=== PATIENT | male | born 1985 | race Caucasian/White ===

== ENCOUNTER 2016-07-15 18:30 | Inpatient (IN) | payer MEDICAID, OTHER ==
[~2016-07-15] VITALS: Ht 160 cm; Wt 89.8 kg
[~2016-07-15 18:30] MED LIST: COGENTIN PO; OLAN10TA22 PO; VIS25 PO
[2016-07-15] MEDS ORDERED: Magnesium Hydroxide 10 mL Oral Concentration PO PRN (21:25)
[2016-07-15] MEDS ORDERED: Alum-Mag Hydrox-Simeth 30 mL Suspension PO PRN (21:25)
[2016-07-15] MEDS ORDERED: LORazepam 1 mg Tablet PO PRN (21:25)
[2016-07-15] MEDS ORDERED: Benzocaine-Menthol Lozenge 2/Pkg PO PRN (21:25)
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
[2016-07-16] MEDS ORDERED: HYDR50TA76 (09:16)
[2016-07-16] MEDS ORDERED: MIRT15TA6 (09:16)
[2016-07-16] MEDS ORDERED: LIT300 (09:16)
[2016-07-16] MEDS ORDERED: LURA80TA3 (09:16)
[2016-07-16] MEDS ORDERED: GABA-502 (09:16)
[2016-07-16 10:35] VITALS: BP 126/84; PULSE 84; RESP 16
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
--- NOTE | 2016-07-16 17:24 | NUR ---
Nursing Dayshift: S: "Playing SeroMatch helps my anxiety and depression." O: Patient playing [employer]) video game in the group activity room when making above statement. Has been up for meals and group activities. Good appetite. Interactive on approach. wears wrist brace most of the time taking it off for meals. No c/o pain. Denies harmful thoughts and hallucinations. A: Flat affect. Med compliant. P: CPOC. Monitor mood and behavior.
--- NOTE | 2016-07-16 18:08 | NUR ---
[facility] Day Shift Pt maintained behavioral control throughout the shift. Pt affect appears mostly flat. Pt spends most of the shift resting in his room, sitting quietly in the dining room, and participating in unit activities. Pt is appropriate with staff and peers when active on the unit, but is not social. Pt spends a considerable amount of time using the unit [employer] console to play video games, which pt claims helps him deal with anxiety and depression. Pt attended all meals and ate approx 100% of all meals.
[2016-07-16] MEDS ORDERED: risperiDONE 1 mg Tablet ONE (18:23)
[2016-07-16] MEDS: risperiDONE 2 mg Tablet PO SCH ×2 (18:33→20:16)
--- NOTE | 2016-07-16 18:33 | NUR ---
Nurses PRN Patient received Risperdal 1mg of HS dose of 2mg for c/o increasing troubled thoughts,anxiety and Cogentin 1mg for restlessness,will assess response. Addendum: 07/16/16 at 2105 by PA VENEGAS RN Nurses Note Cheryl Patient maintained control this shift. He c/o inability to sleep and became irritated and anxious. He received Ambien 5mg and Ativan 1mg at 2100 for sleep,director of technology to assess response.
--- NOTE | 2016-07-16 18:50 | NUR ---
Medical Social Worker/Counselor: S: "I really want to get my life under control and do better things with it." O: Patient slept 6.75+ hours last night as per staff. He reports thoughts of suicide with a plan of an overdose. He denies H/I. He denies auditory and visual hallucinations. He did not rate depression and anxiety. A: Patient is cooperative, guarded, hypervigilant, fair insight, fair judgment. P: Follow care plan, coordinate out-patient providers.
[2016-07-16] MEDS: LORazepam 1 mg Tablet PO PRN (20:58)
--- NOTE | 2016-07-17 05:11 | NUR ---
Nursing Note 7pm to 7am Pt visible on unit at start of shift playing WE with peers, mood neutral, affect congruent. No complaints voiced or observed. Pt medication compliant. Went to bed after evening movie and slept through the night. Monitoring ongoing
[2016-07-17] MEDS: risperiDONE 2 mg Tablet PO SCH ×2 (08:00→20:47)
[2016-07-17 09:00] VITALS: BP 129/88; PULSE 85; RESP 16
--- NOTE | 2016-07-17 16:59 | NUR ---
Nursing Dayshift: S: "I am having some suicidal thoughts. Nothing I can do in here though." O: Patient acknowledging SI. Denies HI, anxiety, depression, and hallucinations. Slept through breakfast. Ate well at lunch and currently states he is very hungry for dinner which just arrived. Has been watching TV with male peer recently. Has napped this afternoon. No complaints verbalized. A: Med compliant. Flat affect. P: CPOC. Monitor mood and behavior.
--- NOTE | 2016-07-17 17:35 | PROG NOTE ---
[address] [address] PROGRESS NOTE PATIENT: BIANCA THOMAS : 1985 MR#: [id number] ADMIT: 07/15/2016 JOB ID: [id number] DATE: 07/17/2016 CHIEF COMPLAINT: "I am feeling okay." This per patient report. HISTORY OF PRESENT ILLNESS: As stated above, the patient identified that he does feel that the medication difference between his dose of Latuda and Risperdal seems to be working. He indicated that he has been sleeping much of the day. He indicates that he does feel somewhat sedated, but states that it is nice to know that his mood is much more stable. He indicated that he has not had any further thoughts of suicide, thoughts of self-harm over the past 24 hours. MENTAL STATUS EXAMINATION: He was bright, cooperative, interactive. He maintained good eye contact. He reportedly has been sleeping much of the day. He reportedly states that he does want to effectively work with transferring his services to [facility] versus [facility]. His speech is of normal tone, frequency, and volume. His mood is neutral. His affect was congruent. His thought process shows no evidence of random flight of ideas, loose or disconnected thinking. Thought content: He denied any evidence of current suicidal or homicidal ideation. No evidence of active hallucinations or delusions. He was alert and oriented to time, place, and situation. Attention and concentration intact. Memory intact in the short-term, long-term, and recent. Insight and judgement are fair. PHYSICAL EXAMINATION: Vital signs are current: Temperature 35.9, pulse 85, respirations 16, blood pressure 129/88. MEDICATIONS: Review includes Remeron 15 mg q.h.s., gabapentin 600 mg b.i.d., Risperdal 2 mg b.i.d., Cogentin p.r.n. 1 mg b.i.d., and lithium carbonate 600 mg b.i.d. ASSESSMENT: [place] I: 1. Bipolar disorder not otherwise specified by history. 2. Post-traumatic stress disorder, chronic. 3. Major depressive disorder, recurrent type, nonpsychotic. [place] II: 1. Borderline personality disorder, probable. 2. Antisocial personality disorder, probable. [place] III: 1. History of recent fracture of right hand. 2. History of eczema and acne. [place] IV: Stressors are noted for disturbance of coping, chronic history of substance abuse. [place] V: Global Assessment of Functioning of current 25. PLAN: 1. Recommendations for continuation of medications as noted with introduction of In[place]ichael [place] on Tuesday. 2. Continuation of pursuit of extension of LR 90 to be applied per the courts on Tuesday of next week. 3. Continuation of support as noted.
--- NOTE | 2016-07-17 17:50 | NUR ---
Observations 2709-3740 Pt was asleep in room upon start of shift. He did not attend Community Meeting or participate in group activities. He spent much of his day sleeping in bed. He did not attend breakfast, but attended lunch and dinner eating 100%. Pt was friendly with staff and peers, but not overly social. He played wii in the evening. He was observed every 15 minutes of shift as directed.
--- NOTE | 2016-07-18 05:13 | NUR ---
nursing, nights, 11-7 s/o- has appeared to sleep after 2014 during q 15 minute assessments. a- no apparent distress. p- monitor behavior/emotional state, quality, times and amount of sleep, use and effect of medication. eunice
--- NOTE | 2016-07-18 05:19 | NUR ---
Nursing Note 7pm to 7am Pt seen in common area watching tv with peers. Requested night time meds as soon as available. Pt received Ambien for sleep, went to bed at 2014 and slept through the night without incident. Monitored with q 15 minute checks for safety, location and accountability.
[2016-07-18] MEDS: risperiDONE 2 mg Tablet PO SCH ×2 (08:00→20:33)
[2016-07-18 09:00] VITALS: BP 121/82; PULSE 85; RESP 16
[2016-07-18] MEDS ORDERED: Paliperidone Palmitate 234 mg/1.5 mL Inj (NC) IM SCH (12:00)
--- NOTE | 2016-07-18 17:04 | NUR ---
Nursing Dayshift: S: "I'd rather not have it in the arm." O: Patient received first dose of Invega Sustenna IM this afternoon in the right buttock per choice. Has been in his bed much of the day. Up for meals with a good appetite. Anxiety "low". Depression "high". Denies harmful thoughts and hallucinations. A: Flat. Forlorn. Disinterested. P: CPOC. Monitor mood and behavior.
--- NOTE | 2016-07-18 18:19 | PROG NOTE ---
[address] [address] PROGRESS NOTE PATIENT: BIANCA THOMAS : 1985 MR#: [id number] ADMIT: 07/15/2016 JOB ID: [id number] DATE: 07/18/2016 CHIEF COMPLAINT: "I am feeling sleepy, when do you think I can get my shot." This per patient report. HISTORY OF PRESENT ILLNESS: As stated above, the patient did identify that he is currently struggling with significant sedation as a side effect with introductions of Risperdal. He indicates, however, that it has been nice due to the fact he has been able to express that his thoughts are much calmer. He reportedly has isolated and withdrawn from the group activities at times but has participated in various interactions with staff. He evidently is playing the [employer] with several of the patient's at times. OBJECTIVE: On mental status exam, he was cooperative, polite. He maintains good eye contact throughout. He is quite sedate on approach. His speech is soft and monotonic. His mood is depressed. His affect is blunted. His thought process shows no evidence of racing thoughts, flight of ideas, loose or disconnected thinking. Thought content: He denied any evidence of current suicidal ideation, intent, or plan. He did admit to struggles last evening with suicidal thoughts and feelings of hopelessness. He denied any active hallucinations or delusions. He was alert, oriented to place and time. His attention and concentration intact. Memory intact in the short term, terminal gauger, recent. Insight and judgment are fair. PHYSICAL EXAMINATION: Vital signs, current: Temperature is 35.9, pulse 85, respirations 16, BP 129/88. MEDICATION REVIEW: Includes: 1. Remeron 15 mg q.h.s. 2. Ativan 1 mg q.4 h. p.r.n. for anxiety, agitation. 3. Ambien 5 mg at h.s. p.r.n. 4. Gabapentin 600 mg b.i.d. 5. Risperdal 2 mg b.i.d. 6. Cogentin 1 mg b.i.d. p.r.n. 7. Doxycycline 100 mg daily. 8. Ponce carbonate 600 mg b.i.d. ASSESSMENT: [place] I. 1. Bipolar disorder, not otherwise specified, by history. 2. Posttraumatic stress disorder, chronic. 3. Major depressive disorder, recurrent type, nonpsychotic. [place] II. 1. Borderline personality disorder. 2. Antisocial personality disorder. [place] III. 1. History of recent fracture of his right hand. 2. History of eczema and acne. [place] IV. Stressors are noted for disturbance of coping, chronic history of substance abuse. [place] V. Global Assessment of Functioning current 30. PLAN: 1. Recommendations for injections of Invega Sustenna 234 mg to be given today. 2. Ponce level to be drawn tomorrow morning. 3. Continuation of all other medications noted. MTDD
--- NOTE | 2016-07-18 18:21 | NUR ---
Observations [id number] Pt was asleep upon start of shift. He continues to sleep much of the day, only getting up for meals. Pt presents with a large appetite, eating 100%. He is not overly social with others and isolates much of the time. Pt asked about medication, very focused on getting a shot the doctor told him he would be getting. Pt did get shot today. He was observed every 15 minutes of shift as directed.
--- NOTE | 2016-07-19 04:57 | NUR ---
Nursing Noc 7p-7a Pt had a noneventful evening. He came out briefly for snacks but otherwise did not participate in unit activities. He presents with a flat blunt affect. Took scheduled medication along with Ambien 5mg po prn for sleep with good effect. He retired to bed right after snack time and appeared asleep by 2129. Pt has remained asleep through the night with no noted distress or awakening per protocol checks. Total sleep over 7.5 hours.
[2016-07-19] MEDS: risperiDONE 2 mg Tablet PO SCH ×2 (08:17→20:39)
[2016-07-19 09:00] VITALS: BP 133/78; PULSE 65; RESP 17
--- NOTE | 2016-07-19 17:13 | NUR ---
Observations 0900 to 1730 Pt affect and mood was anxious, labile and isolative. Pt speech and eye contact was ok. Pt attended group but left early and stated that he was too tired to stay in group. Pt attended community meeting and set a daily goal. Pt was social with staff and peers when approached. Pt played Timeful in the group room. Pt attended meals in D.R. and ate 100% of breakfast and 100% of lunch. Pt maintained behavior throughout the shift. Pt was in his room resting in the afternoon. Pt was polite, pleasant and cooperative. Pt is currently watching TV with peers. Pt was observed every 15 minutes throughout the shift as ordered. Addendum: 07/19/16 at 1732 by ISIDRO MARTIN [facility] Pt took a shower and attended to ADL's.
--- NOTE | 2016-07-19 17:50 | NUR ---
Cat Hooker/Counselor: S: "I'm really sleepy today, I need to get that shot soon." O: Patient slept 8+ hours last night as per staff. He reports that he's having thoughts of suicide, but contracts for safety in the hospital. He denies H/I. He denies auditory and visual hallucinations. He did not rate depression and anxiety. A: Patient is cooperative, blunted affect, depressed, hopeless, fair insight, fair judgment. P: Follow care plan, coordinate out-patient providers.
--- NOTE | 2016-07-19 18:02 | NUR ---
Nursing Dayshift: S: "I don't want any meds until I talk to the doctor about changing some of them. This is why I am so tired all the time. Too much pills in the morning!" O: Patient did take his AM meds after lunch after some of the medications had been adjusted. Has been playing WII this afternoon by himself. Not much interaction with peers. Good appetite at meals. Of note has been up all shift. Rates anxiety and depression "in the middle". Denies harmful thoughts and hallucinations. A: Flat. Disgruntled at times. P: CPOC. Monitor mood and behavior.
--- NOTE | 2016-07-19 20:41 | PROG NOTE ---
[address] [address] PROGRESS NOTE PATIENT: BIANCA THOMAS : 1985 MR#: [id number] ADMIT: 07/15/2016 JOB ID: [id number] DATE: CHIEF COMPLAINT: "I am feeling so sleepy during the daytime. Can we decrease the medicine?" This is per patient report. HISTORY OF PRESENT ILLNESS: As stated above, the patient did identify that he continues to have significant struggles with daytime sedation and lethargy. I have discussed possibility of tapering his Risperdal back to 1 mg b.i.d., based on his recent introductions of Invega Sustenna and he is open to such. I have informed him that he will receive a followup injection in the next four days for his Invega. He identified that he continues to be optimistic that [facility] will transfer his case to [facility]. 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 OBJECTIVE: On mental status exam, he was cooperative, polite. He maintained good eye contact. He appears fairly anxious on interaction at times. His speech is of normal tone, frequency, and volume. His mood is anxious. His affect is elevated to some degree. His thought process shows no evidence of racing thoughts, flight of ideas, loose or disconnected thinking. His thought content: He denies any evidence of current suicidal or homicidal ideation. There is a continuation of mild paranoia, which is characteristic of hypervigilance. He denies any active hallucinations, delusions. He was alert, oriented to time and place. His attention and concentration fleeting. Insight and judgment are fair. PHYSICAL EXAMINATION: Vital signs, current: Temperature is 35.8, pulse 65, respirations 17. LABORATORY DATA COLLECTED: Included a lithium level, which was at 0.5 this morning. I have discussed further titration of his lithium to 900 mg b.i.d. for more effective management. ASSESSMENT: [place] I. 1. Major depressive disorder, recurrent type, nonpsychotic. 2. Bipolar disorder, not otherwise specified by history. 3. Posttraumatic stress disorder, chronic. [place] II. 1. Borderline personality disorder. 2. Antisocial personality disorder. [place] III. History of fracture of his hand, eczema, and acne. [place] IV. Stressors are noted for chronic history of substance abuse, disturbance in coping. [place] V. Global Assessment of Functioning current 35. PLAN: 1. Recommendations for titration of lithium to 900 mg b.i.d. 2. Decrease Risperdal to 1 mg b.i.d. 3. Continuation of all medications as noted. 4. Recommendations for petition for extension of LR 90 to be filed through [facility] or possible applications to be completed on Tuesday of this week through [facility].
--- NOTE | 2016-07-20 01:09 | NUR ---
Observations 1900 to 0700 Pt watched TV for most of the shift. Pt isolated to n5earss mostly. Pt was polite to staff when approached. pt did attend wrap up group. pt had a hard time falling asleep last night. pt first appeared asleep at 23:45 and was observed every 15 minutes through the night as directed.
--- NOTE | 2016-07-20 06:17 | NUR ---
Nursing Noc 7p-7a Pt visible out on the unit interacting with both peers and staff. He participated in evening group/snack/movie. He c/o right hand pain stating "I think it is broken". Pt's hand looks red and swollen. Pt plans to see doctor and request an assessment and possible x-ray of his right hand. Doctor notified of pt's request for pain medication. One time dose of Flexeril 10mg po ordered and given. Pt did not believe this would help but did accept medication. Ice pack provided pt. Pt retired to bed and has remained asleep since 2344 with no noted distress or awakening per protocol checks. Total sleep over 6.5 hours.
[2016-07-20] MEDS: risperiDONE 2 mg Tablet PO SCH ×2 (08:27→20:47)
[2016-07-20 10:18] VITALS: BP 132/74; PULSE 55; RESP 16
--- NOTE | 2016-07-20 13:18 | PROG NOTE ---
[address] [address] PROGRESS NOTE PATIENT: BIANCA THOMAS : 1985 MR#: [id number] ADMIT: 07/15/2016 JOB ID: [id number] DATE: 07/20/2016 CHIEF COMPLAINT: "My hand is still hurting." This is per patient report. HISTORY OF PRESENT ILLNESS: As stated above, the patient identified continuation of persistent pain in his right metacarpal region. He reportedly had been seen through the [facility] prior to his transport and is currently wearing a brace. I have agreed to order an x-ray for followup review and due to his significant history of allergies to ACETAMINOPHEN and also his concomitant usage of lithium, I have informed him that I am reluctant to engage in treatment with medication for pain management until further review of x-rays are noted. OBJECTIVE: On mental status exam, he was bright, cooperative, interactive. He maintained good eye contact. He indicated that sedation is much less with decreased doses of Risperdal down to 1 mg b.i.d. His speech is of normal tone, frequency and volume. His mood is neutral. His affect is guarded. His thought process shows no evidence of racing thoughts, flight of ideas, loose or disconnected thinking. Thought content, he denied any evidence of current suicidal or homicidal ideation. He denied any active hallucinations or delusions. He continues to be mildly paranoid and hypervigilant. He was alert, oriented to time and place. Attention and concentration are intact. Memory intact in the short term, retirement, recent. Insight and judgment are fair. PHYSICAL EXAMINATION: Vital signs are current. Temperature is 35.5, pulse 55, respirations 16, BP 132/74. MEDICATION REVIEW: Includes: 1. Gabapentin 600 mg b.i.d. 2. [place] 900 mg b.i.d. 3. Risperdal 1 mg b.i.d. 4. Remeron 15 mg q.h.s. 5. Ativan 1 mg q.4 h. p.r.n. 6. Ambien 5 mg at h.s. p.r.n. 7. Cogentin 1 mg b.i.d. p.r.n. 8. Doxycycline 100 mg daily. ASSESSMENT: AXIS I 1. Major depressive disorder, recurrent type, nonpsychotic. 2. Bipolar disorder, not otherwise specified by history. 3. Posttraumatic stress disorder, chronic. AXIS II 1. Borderline personality disorder. 2. Antisocial personality disorder. AXIS III 1. History of fracture of hand. 2. Eczema. 3. Acne. AXIS IV Stressors are noted for substance abuse, disturbance of coping. AXIS V Global Assessment of Functioning current 35. PLAN: 1. Recommendation is for continuation of all medications noted. 2. X-ray of the hand to be re-completed for further review. 3. Recommendation is for applications for extension of LR 90, be filed on , with pursuit of discharge to the [facility] at patient request. Coordination with court services will follow.
--- NOTE | 2016-07-20 13:30 | NUR ---
Nursing Note [id number] Behavior S/O: Pt out of room for meals only. Good appetite. Pulse is low at 55 today. X-ray of right wrist done d/t increasing pain. Pt pleasant & cooperative upon approach. Conversation tracking clear & organized with normal rate & rhythm. No interactions seen with peers. Pt d/n attend groups today. A: Pt isolative & feels extremely uncomfortable talking with staff & peers. Pt con't to be paranoid. P: Provide supportive environment. Monitor medications & effects.
--- NOTE | 2016-07-20 14:02 | DRSVH ---
PROCEDURE: X-RAY RIGHT HAND, MINIMUM THREE VIEWS ([id number]) INDICATIONS: fracture TECHNIQUE: 3 views of the hand(s) acquired. COMPARISON: [facility], CR, FOREARM 2VW (RT), 11/10/2012, 20:49. FINDINGS: Bones: Surgical fixation screw is present traversing fracture involving the distal pole of the scapho id or fracture lucency is still visible. There is no evidence of osteonecrosis involving the proxima l pole. No additional fracture seen. Soft tissues: No suspicious soft tissue calcifications. IMPRESSION: Postsurgical changes involving the scaphoid related to distal pole scaphoid fracture and fracture lucency is still visible. No radiographic evidence for osteonecrosis involving the proximal pole. Dictated by: Vince ROSS Interpreted: Dorothy Villarreal MD on 07/20/2016 at 14:00 Transcribed by: MACHELLE on 07/20/2016 at 14:02 Approved by: Dorothy Villarreal M.D. on 07/20/2016 at 16:56
--- NOTE | 2016-07-20 15:48 | NUR ---
Scenic Designer/Counselor: S: "My hand is still hurting." O: Patient slept 6+ hours last night as per staff. He denies S/I and H/I. He denies auditory and visual hallucinations. A: Patient is cooperative, guarded, mildly paranoid, hypervigilant, fair insight, fair judgment. P: Follow care plan, coordinate out-patient providers.
[2016-07-20] MEDS: LORazepam 1 mg Tablet PO PRN (18:22)
--- NOTE | 2016-07-20 18:46 | NUR ---
Obs Dayshift Pt declined morning groups, did get up and participated in afternoon/evening groups. Pt is polite, engaged, played cards w/ a peer during free times. Pt is calm, polite, good eye contact. Ok ADL's, Good meals
--- NOTE | 2016-07-20 20:59 | NUR ---
Nurses Note Evening "I really need something for pain, the pain is running up to my elbow." Patient received Ibuprofen 600mg at 1915 for 01/06. He received an Ativan 1 mg at 1821 for anxiety with calming effect. Patient stated moderate pain relief with Ibuprofen. He has been social.polite with clear organized goal directed thoughts. His affect remains constricted but his mood is much improved from this weekend. Will encourage continued group participation,improved insight,coping skills and medication compliance. Patient has a [place] level scheduled in the am. Addendum: 07/20/16 at 1112 by PA VENEGAS RN Amended: Links added.
--- NOTE | 2016-07-21 00:59 | NUR ---
Observations 1900 to 0700 Pt watched TV for most of the shift. Pt isolated to himself mostly. Pt was polite to staff when approached. pt did attend wrap up group. pt first appeared asleep at 21:45 and was observed every 15 minutes through the night as directed.
--- NOTE | 2016-07-21 05:00 | NUR ---
Sleep 11p-7a Adequate sleep through the night with no noted distress or awakening per protocol checks. Total sleep 8+ hours.
[2016-07-21] MEDS: risperiDONE 2 mg Tablet PO SCH ×2 (08:46→20:27)
[2016-07-21 12:14] VITALS: BP 130/72; PULSE 52; RESP 15
--- NOTE | 2016-07-21 12:35 | PROG NOTE ---
[address] [address] PROGRESS NOTE PATIENT: BIANCA THOMAS : 1985 MR#: [id number] ADMIT: 07/15/2016 JOB ID: [id number] DATE: 07/21/2016 CHIEF COMPLAINT: "My hand does feel better. Thanks for giving the ibuprofen." HISTORY OF PRESENT ILLNESS: As stated above, the patient did indicate that last evening after receiving doses of ibuprofen that the pain in his hand has significantly improved. His lithium level came back this morning at 0.7 and I have informed him that, based on usage of ibuprofen combined with his lithium, we will closely monitor interactions. He indicated that he is feeling less sleepy during the daytime and appreciated the decreased dose of Risperdal. He reports that he continues to experience auditory hallucinations to some degree but he is able to distract himself in general. He did receive his 1st dose of Invega Sustenna on the ; next scheduled doses will be on the . OBJECTIVE: On mental status exam, he was sleeping during the course of conversation. He was able to arouse and actually spoke favorably of his current status. He was agreeable to go through a continuance hearing on Tuesday with a petition to reapply for LR 90 and extension. He indicated that he knows that he needs a director of casework and assistance for housing and medication management and states that his goal is to transition to [facility]. On mental status exam, as noted above, the patient is mildly sedate. He makes intermittent eye contact. His speech is of normal tone, frequency, and volume. His mood is neutral. Affect was blunted. His thought process shows some continuation of loose and disorganized thinking. He is fairly distracted. His thought content, he denied any evidence of current suicidal or homicidal ideation. He remains mildly paranoid. He did admit to hearing voices last evening and appears to be somewhat distracted on interaction. He was alert, oriented to time and place. His attention and concentration intact. Memory intact in the short term, chcf, recent. Insight and judgment are fair. On physical examination, vital signs of current: Temperature is 35.5, pulse 55, respirations 16, BP 132/74. MEDICATION REVIEW: Includes Neurontin 600 mg b.i.d., ibuprofen 600 mg q. 6 hours p.r.n. for pain, lithium carbonate 900 mg b.i.d., Risperdal 1 mg b.i.d., Invega Sustenna 234 mg on the with next scheduled on the , Remeron 15 mg q.h.s., doxycycline 100 mg daily. ASSESSMENT: [place] I: 1. Bipolar disorder, not otherwise specified, by history. 2. Major depressive disorder, recurrent type, nonpsychotic. 3. Post-traumatic stress disorder, chronic. [place] II: 1. Borderline personality disorder. 2. Antisocial personality disorder by history. [place] III: None. [place] IV: Stressors are noted for chronic disturbance of coping, chronic mental health issues. [place] V: Global Assessment of Functioning of current 30. PLAN: 1. Recommendations for applications for extension of LR 90 to be filed tomorrow with court appearance on Tuesday. 2. Recommendations for continuation of all medications noted.
--- NOTE | 2016-07-21 14:15 | NUR ---
Nursing Note [id number] Behavior S/O: Pt has good appetite. Out of rooms for meals only. Pt has been in bed resting/asleep except for meals. Pt took am medications without problems. He states he slept well last night. Pt has had no interactions with peers & superficial interactions with staff. Pt refused to attend groups today. Conversation tracking clear & organized with normal rate & rhythm. A: Pt isolative in room. P: Provide supportive environment. Encourage pt to attend groups. Monitor medications & effects.
--- NOTE | 2016-07-21 21:33 | NUR ---
Nurses PRN Patient requested and received Ambien 5mg at 2026 and a repeat at 2132 for sleep,overnight babysitter to assess response.
--- NOTE | 2016-07-21 22:14 | NUR ---
Nurses Note Evening Patient has been out on the unit,appropriately social with peers.Thoughts are clear,organized and reality based. His mood has been depressed with waves of anxiety and worry. Patient has been talking about going to a technical school to acquire a skill. He worries about his right wrist healing well,his ability to do work when healed and his discharge disposition. Will maintain q 15min. checks for safety and support. Addendum: 07/21/16 at 2223 by PA VENEGAS RN Amended: Links added.
--- NOTE | 2016-07-22 05:46 | NUR ---
nursing, nights, 11-7 s/o- has appeared to sleep after 2244 during q 15 minute assessments. a- no apparent distress. p- monitor behavior/emotional state, quality, times and amount of sleep, use and effect of medication. eunice
[2016-07-22] MEDS: risperiDONE 2 mg Tablet PO SCH ×2 (08:36→20:28)
[2016-07-22 10:15] VITALS: BP 119/70; PULSE 62; RESP 16
--- NOTE | 2016-07-22 12:41 | PROG NOTE ---
[address] [address] PROGRESS NOTE PATIENT: BIANCA THOMAS : 1985 MR#: [id number] ADMIT: 07/15/2016 JOB ID: [id number] DATE: 07/22/2016 CHIEF COMPLAINT: "I want go through the process. I have never been through court." This per patient report. HISTORY OF PRESENT ILLNESS: As stated above, the patient confirms that he does want to actually going into court tomorrow to hear the reading of the court order. He indicated that with his previous 11 admissions that he has never actually been through a court process. He was quite verbal today and earlier today actually was expressing significant concerns about the delay in transfer from [facility] to [facility]. 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 He indicates that his father was previously involved with construction. OBJECTIVE: On mental status exam, he was cooperative, polite. He maintained good eye contact. He smiled appropriately throughout the course of conversation. His speech is of normal tone, frequency, and volume. His mood is neutral. Affect was congruent. His thought process showed no evidence of random flight of ideas, loose or disconnected thinking. Thought content: He denied any evidence of current suicidal, homicidal ideation. No evidence of active hallucinations, delusions. He was alert, oriented to time and place. His attention and concentration intact. Memory intact in the short term, group home, recent. Insight and judgment are fair. On physical examination, all vital signs are current: Temperature is 35.7, pulse 52, respirations 15, BP 130/72. MEDICATION REVIEW: Includes Invega Sustenna, next injection scheduled tomorrow 156 mg, gabapentin 600 mg b.i.d., ibuprofen 600 mg q. 6 hours p.r.n. for pain, lithium carbonate 900 mg b.i.d., Risperdal 1 mg b.i.d., Remeron 15 mg q.h.s., Ativan 1 mg q.4 h. p.r.n., Ambien 5 mg at h.s. p.r.n., Cogentin 1 mg b.i.d. p.r.n., doxycycline 100 mg daily. ASSESSMENT: [place] I: 1. Major depressive disorder, recurrent type, nonpsychotic. 2. Bipolar disorder, not otherwise specified, by history. 3. Post-traumatic stress disorder, chronic. [place] II: 1. Borderline personality disorder. 2. Antisocial personality disorder. [place] III: History of fracture of right hand. [place] IV: Stressors are noted for chronic disturbance of coping, chronic mental health issues. [place] V: Global Assessment of Functioning of current 35. PLAN: 1. Recommendations for applications of extension of LR 90 to be filed with the court tomorrow. 2. Continuation of all medications noted.
--- NOTE | 2016-07-22 14:09 | NUR ---
Nursing Note [id number] Behavior S/O: Pt has ate 100% of breakfast & lunch. He attended some groups. His goal today was to "stay awake." Pt participated in milieu by watching TV, drawing & doing laundry. Pt not seen interacting with peers at all today. He interacts briefly with staff. Pt currently sleeping. Conversation tracking clear. Answer questions briefly, but appropriately. A: Pt has difficulty interacting with others. P: Provide supportive environment. Monitor medications & effects.
--- NOTE | 2016-07-22 14:30 | NUR ---
Observations 0700 to 1430 Pt affect and mood remains the same as previous days on the unit. Pt speech and eye contact was ok. Pt attended a.m. group but left early. Pt attended community meeting and set a daily goal. Pt was social with staff and peers when approached. Pt attended meals in D.R. and ate 100% of breakfast and 100% of lunch. Pt ate snack. Pt maintained behavior throughout the shift. Pt was in his room resting in the afternoon. Pt was polite, pleasant and cooperative. Pt watched TV with peers during free time. Pt was observed every 15 minutes throughout the shift as ordered. Pt is currently resting and asleep in his bed.
[2016-07-22] MEDS: LORazepam 1 mg Tablet PO PRN (15:02)
--- NOTE | 2016-07-22 18:50 | NUR ---
Dobie Worker/Counselor: S: "[facility] O: Patient slept 7.5 hours last night as per staff. He denies S/I and H/I. He denies auditory and visual hallucinations. Depression is 3/10 and 0/10. A: Patient is cooperative, guarded, mildly paranoid, hypervigilant, fair insight, fair judgment. P: Follow care plan, coordinate out-patient providers.
--- NOTE | 2016-07-23 04:28 | NUR ---
Pt isolated to room entire shift. Asleep at 2045. Pt observed every 15 minutes as ordered.
--- NOTE | 2016-07-23 05:24 | NUR ---
nursing, nights, 11-7 s/o- has appeared to sleep after 2044 during q 15 minute assessments. a- no apparent distress. p- monitor behavior/emotional state, quality, times and amount of sleep, use and effect of medication. eunice
[2016-07-23] MEDS: risperiDONE 2 mg Tablet PO SCH (08:54)
[2016-07-23] MEDS ORDERED: Paliperidone Palmitate 156 mg/mL Inj (NC) IM SCH (09:55)
--- NOTE | 2016-07-23 11:13 | NUR ---
Nursing Day Shift- S- "I'm fine. I feel tired all the time. No..no problem with the shot last time." O- Pt. had slept 9.5 hours pr staff report. He appeared asleep at the start of the day, and was woken at 0900 for morning medications and breakfast. He denied depression or anxiety. Invega 156 MG was administered in the R Butex. Pt. denied any side effects from the shot 4 days ago. He was observed watching TV and smiling. A- Pt. appears at ease on the unit. P- Cont. BHTP. Pt. agreed in court today to an extension of his 90 day LRO.
--- NOTE | 2016-07-23 12:00 | PCM.DIMED ---
Discharge Instructions Date of Service Jul 23, 2016 Dates of Hospitalization Jul 15, 2016 at 20:27 Discharge Diagnosis Discharge Diagnosis Major Depression Recurrent nonpsychotic Bipolar DO NOS PTSD chronic Diet No restrictions Activity No restrictions Tomer Corral DO Jul 23, 2016 12:00
[2016-07-23] MEDS ORDERED: LITH300T2 PO (12:06)
[2016-07-23] MEDS ORDERED: PALI156D IM (12:06)
[2016-07-23] MEDS ORDERED: MIRT15TA6 PO (12:06)
[2016-07-23] MEDS ORDERED: GABA300C PO (12:06)
[2016-07-23] MEDS ORDERED: RISP2TAB21 PO (12:06)
--- NOTE | 2016-07-23 13:14 | NUR ---
Nursing Discharge- Planned discharge at 1330 today to home. Pt's father to provide transport. Pt's prescriptions were faxed to [facility] as he had requested. Pt. requested discharge at 1130 today. He became loud and agitated when he was told the and CM needed to be consulted. Pt. stated: "I'm Voluntary! They need to hurry up! I need to get the FUCK out of here now! Pt. was able to settle and calm. He expressed an understanding of the follow up and medication plans. Pt. expressed an understanding of the terms of his 90 day LRO. Addendum: 07/23/16 at 1417 by RADHA PATEL RN Pt. discharged at 1400 today.
--- NOTE | 2016-07-23 13:26 | DIS ---
[address] [address] DISCHARGE SUMMARY PATIENT: BIANCA THOMAS : 1985 MR#: [id number] ADMIT: 07/15/2016 JOB ID: [id number] DIS: ADMITTING DIAGNOSES: Include [place] I. 1. Bipolar disorder, not otherwise specified. 2. Posttraumatic stress disorder, chronic. 3. Major depressive disorder, recurrent type, nonpsychotic. [place] II. 1. Borderline personality disorder. 2. Antisocial personality disorder. [place] III. 1. History of recent fracture of the right hand. 2. History of eczema and acne [place] IV. Stressors are noted for disturbance of coping, chronic history of substance abuse. [place] V. Global Assessment of Functioning current, 25. DISCHARGE DIAGNOSES: Include [place] I. 1. Bipolar disorder, not otherwise specified. 2. Posttraumatic stress disorder, chronic. 3. Major depressive disorder, recurrent type, nonpsychotic. [place] II. 1. Borderline personality disorder. 2. Antisocial personality disorder. [place] III. 1. History of recent fracture of the right hand. 2. History of eczema and acne [place] IV. Stressors are noted for disturbance of coping, chronic history of substance abuse. [place] V. Global Assessment of Functioning current, 50. REASON FOR ADMISSION: Patient was a 30-year-old male, who was admitted under a petition to revoke LR 90 from [facility]. The patient presented with increasing difficulties with depression, suicidal ideation with intent and plan of taking an overdose of his medications. During hospital course, patient's history was reviewed with open identification of greater than 11 admissions and detainments over the past several years. The patient reportedly had a previous history of placement in foster care, beginning at the age of [age], and also received residential treatment from the ages of 10-12. During hospital course, patient openly identified significant history of trauma, flashbacks, and overlapping difficulties with characteristic features of reactive attachment disorder. Election to discontinue doses of Latuda with transition to injections of Invega Sustenna, combined with oral dose administration of Risperdal was proposed, and the patient agreed. Throughout hospital course, patient also had titration of previous doses of Remeron from 7.5 mg to 15 mg q.h.s. and changes of format of his gabapentin from 300 mg t.i.d. to 600 mg b.i.d. The patient showed considerable improvement with mood stabilization and affect regulation. His lithium level at 600 mg b.i.d. did come back fairly depressed at 0.3. Titration to 900 mg b.i.d. revealed significant improvement at 0.7. Throughout hospital course, patient was agreeable with an extension of his LR 90, and he was later discharged with a point and transition plan of transferring his current services of [facility] through [facility] to [facility] with [facility]. He indicated that he was currently living with the father and would return to [place]. CONDITION AT TIME OF DISCHARGE: Patient was bright, cooperative, interactive. He denied any evidence of acute distress. His speech was of normal tone, frequency, and volume. His mood was neutral. Affect was congruent. He denied any evidence of current suicidal, homicidal ideation. He was agreeable with aftercare planning. He denied any evidence of active hallucinations, delusions. He was alert, oriented to person, place, time, situation. Attention and concentration are fair. Memory intact in the short term, long-term, recent. Insight and judgment are fair. DISCHARGE PLANS: Include 1. Follow up with [facility] for case management. Followup appointment on Tuesday. 2. Continuation of medication management with previous care providers through [facility]. 3. Continuation of LR 90 with the extension noted through October 28, granted through court interventions provided. 4. Continuation of doses of Risperdal with change of format to 2 mg q.h.s. for the next 30 days with possible discontinuation thereafter. One-month supply was given, no refills. Reason for usage: Antipsychotic and mood stabilizer. 5. Continuation of Invega Sustenna 156 mg q. month, one-month supply, no refills. Reason for usage: Antipsychotic and mood stabilizer. 6. Continuation of Neurontin 600 mg b.i.d., one-month supply, no refills. Reason for usage: History of chronic pain. 7. Continuation of Remeron 15 mg q.h.s., one-month supply, no refills. Reason for usage: PTSD. 8. Continuation of lithium carbonate 900 mg b.i.d., one-month supply, no refills. Reason for usage: Mood stabilizer. 9. Recommendations for followup with general medical care in reference to his recent fracture of his right hand.
[2016-07-23 13:29] VITALS: BP 120/70; PULSE 69; RESP 18
--- NOTE | 2016-07-23 14:43 | NUR ---
Food And Beverage Order Clerk/Counselor: S: "I'm voluntary and I can discharge today if I want to!" O: Patient slept 8.75 hours last night as per staff. He denies S/I and H/I. He denies auditory and visual hallucinations. Depression is 2/10 and 0/10. Out-patient appointment: Patient has been transferred from [facility] to [facility]. This creative services writer spoke with Amy of [facility] and Amy stated that their office will schedule an appointment for the patient. Patient and patient's father was informed that they need to call [facility] upon arrival home to schedule an out-patient appointment with [facility]. A: Patient is cooperative, guarded, fair insight, fair judgment. P: Follow care plan, coordinate out-patient providers.
== END 2016-07-23 14:00 | disposition home or self-care (01) | DRG 885 ==
LOC: MHC 20:27
PROVIDERS: ADMIT Psychiatry & Neurology Psychiatry; ATTEND Psychiatry & Neurology Psychiatry
DX: F31.9 Bipolar disorder, unspecified (principal); R45.851 Suicidal ideations; F43.12 Post-traumatic stress disorder, chronic; F60.3 Borderline personality disorder; F60.2 Antisocial personality disorder; Z62.819 Personal history of unspecified abuse in childhood; Z91.5 Personal history of self-harm